=== PATIENT | female | born 1960 | race Caucasian/White ===

== ENCOUNTER 2016-09-30 07:22 | Inpatient (IN) | payer OTHER ==
[~2016-09-30] VITALS: Ht 157.5 cm; Wt 104.3 kg
[~2016-09-30 07:22] MED LIST: ZOFRAN ODT4 M1 PO
--- NOTE | 2016-09-30 07:24 | NUR ---
PT BIBA FROM HOME C/C GENERALIZED WEAKNESS AND INABILITY TO WALK. PER REPORT PT HAS HAD PROGRESSIVE WEAKNESS AND ARM PAIN IN THE LAST YEAR. YESTERDAY AFTERNOON PT ATTEMPTED TO GET HERSELF FROM THE COUCH TO THE BATHROOM VIA CRAWLING ON THE FLOOR BUT WAS UNABLE TO GET HERSELF OUT OF THE BATHROOM AFTERWARDS. FAMILY FOUND HER ON THE FLOOR IN THE BATHROOM Friday AT APPROX 3 PM. AND SON ASSISTED ON GETTING PATIENT BACK TO COUCH AREA BUT WAS UNABLE TO GET HER BACK UP ONTO THE COUCH SO MADE A BED FOR HER ON THE FLOOR WITH QUILTS. PT HAS HX INCLUDING FIBROMYALGIA, HERNIATED DISK, FUSION, AND NEUROSTIMULATOR FOR PAIN. WAS DUE TO HAVE THE NEUROSTIMULATOR REMOVED TODAY IN [place] SO DR PAEZ COULD PERFORM FURTHER TESTING PER PATIENT. STATES THAT HE DIDN'T WANT TO DO ANYTHING WITH HER UNTIL HE CALLED THE SURGICAL PLACE THIS MORNING. STATES HE CALLED THEM AT 06:00 AND THEY ADVISED HIM TO BRING HER TO THE ER. PT CHANGED INTO HOSPITAL GOWN, SKIN NOTED TO BE CLEAN AND INTACT. PT ABLE TO ASSIST WITH TURNING SELF IN BED.
--- NOTE | 2016-09-30 07:27 | ED GENERAL ADULT ---
History of Present Illness General Chief Complaint: General Adult Stated Complaint: BIBA WEAKNESS Source: patient Exam Limitations: poor historian Vital Signs & Intake/Output Vital Signs & Intake/Output Vital Signs Date Time Temp Pulse Resp B/P Pulse O2 O2 Flow FiO2 Ox Delivery Rate 10/01 1747 99.0 108 18 140/72 95 Room Air 10/01 1236 97.5 95 18 126/75 96 Room Air Room Air 10/01 1022 97.2 90 18 127/69 98 Room Air 10/01 0721 97.7 100 18 166/76 97 Room Air 10/01 0453 97.6 96 18 139/94 96 Room Air 10/01 0212 97.3 98 18 148/86 98 Room Air 09/30 2144 98.6 116 18 146/101 09/30 2144 98.6 116 18 146/101 09/30 2138 98.6 116 18 146/101 97 Room Air ED Intake and Output 10/01 0000 09/30 1200 Intake Total Output Total 150 Balance -150 Output, Urine 150 Patient 230 lb Weight Allergies Coded Allergies: Sulfa (Sulfonamide Antibiotics) (VOMITING 09/30/16) Reconcile Medications Alprazolam 1 MG TABLET 1 TAB PO QPM SLEEP (Reported) Dextroamphetamine/Amphetamine (Dextroamp-Amphetamin 10 MG Tab) 10 MG TABLET 1 TAB PO 1400 UNKNOWN (Reported) Duloxetine HCl 60 MG CAPSULE.DR 1 CAP PO DAILY UNKNOWN (Reported) Ergocalciferol (Vitamin D2) (Vitamin D2) 50,000 UNIT CAPSULE 1 CAP PO Q30D SUPPLEMENT (Reported) Gabapentin 600 MG TABLET 1 CAP PO 4 TIMES/DAY PAIN (Reported) Lamotrigine 200 MG TABLET 1 TAB PO DAILY UNKNOWN (Reported) Levothyroxine Sodium 88 MCG TABLET 1 TAB PO DAILY AC THYROID (Reported) Lisdexamfetamine Dimesylate (Vyvanse) 30 MG CAPSULE 1 CAP PO DAILY UNKNOWN ( Reported) Lisinopril 10 MG TABLET 1 TAB PO DAILY HEART (Reported) Lovastatin 10 MG TABLET 1 TAB PO DAILY CHOLESTEROL (Reported) Metoprolol Succinate 50 MG TAB.ER.24H 1 TAB PO DAILY HEART (Reported) Morphine Sulfate 15 MG TABLET 1 TAB PO BIDP PRN PAIN (Reported) Morphine Sulfate (Morphine Sulfate ER) 60 MG TABLET.ER 1 TAB PO TID PAIN ( Reported) Ondansetron (Zofran Odt) 4 MG TAB.RAPDIS 1 TAB PO Q6 PRN NAUSEA Oxycodone HCl 10 MG TABLET 1 TAB PO 4XDP PRN PAIM (Reported) Onset: Abrupt Duration: day(s): Timing: recent history HPI: 09/30/16 55-year-old female presents to the emergency department complaining of lower extremity weakness. According to the patient she has a history of chronic pain and fibromyalgia. She is also status post neurostimulator insertion. She was initially scheduled to have the neurostimulator removed today but was having profound weakness, so much so she was unable to walk and was actually crawling at home. The onset of the symptoms were abrupt, the duration was 48 hours, the severity is significant as her symptoms required her to come to the emergency department for care. She denies fever or significant pain at this time. (SUZANNE STODDARD DO) Triage Nurses Notes Reviewed? yes (AFIA VU,ASHWIN) Past History Medical History Any Pertinent Medical History? see below for history Neurological: SEIZURES FIBROMYALGIA Cardiovascular: hypertension Other Medical Hx: ADRENAL INSUFFIENCY Surgical History Surgical History: , CERVICAL SURGERY CARPAL TUNNEL, TONSILLECTOMY Psychosocial History Who do you live with Family What is your primary language Mozambican Family History Hx Contributory? No (SUZANNE STODDARD DO) Review of Systems Review of Systems Constitutional: Denies: fever. EENTM: Denies: visual changes. Respiratory: Denies: short of breath. Cardiovascular: Denies: chest pain. GI: Denies: abdominal pain. Genitourinary: Reports: no symptoms. Musculoskeletal: Reports: see HPI. Skin: Denies: rash. Neurological/Psychological: Reports: no symptoms. Hematologic/Endocrine: Denies: bruising, bleeding. (SUZANNE STODDARD DO) Physical Exam Physical Exam General Appearance: alert, awake, anxious, moderate distress Head: atraumatic, normal appearance Eyes: Bilateral: normal appearance, PERRL, EOMI. Ears, Nose, Throat: normal ENT inspection Neck: limited range of motion Respiratory: chest non-tender, no respiratory distress Cardiovascular: regular rate/rhythm Peripheral Pulses: 4+ radial (R), 4+ radial (L) Gastrointestinal: soft, non-tender Back: decreased range of motion Extremities: pedal edema Neurologic/Psych: no motor/sensory deficits, awake, alert, oriented x 3 Skin: intact, normal color, warm/dry (SUZANNE STODDARD DO) Core Measures ACS in differential dx? No CVA/TIA Diagnosis: No Severe Sepsis Present: No Septic Shock Present: No (ASHWIN HELLER MD) Progress Differential Diagnoses I considered the following diagnoses in my evaluation of the patient: [Disc herniation, epidural abscess, exacerbation of fibromyalgia, transverse myelitis, cauda equina syndrome, Guillain-Yang syndrome,] Plan of Care: Orders Procedure Date/time Status Heart Healthy Diet 10/01 B Active Admit to inpatient 10/01 1942 Active Therapeutic Exercise X 15 10/01 UNK Complete Current Medications Sig/Cammy Start time Last Medication Dose Stop Time Status Admin Morphine Sulfate 60 MG ONCE ONE 09/30 2029 CAN (Ms Contin 100MG Tab) 09/30 2030 7:30 PM Patient signed out to me by Dr. Stoddard. Pending case management placement. (ASHWIN HELLER MD) Initial ED EKG: none (SUZANNE STODDARD DO) Differential Diagnoses I considered the following diagnoses in my evaluation of the patient: Hand-Off Endorsed To: SANTIAGO ASHFORD MD Endorsed Time: 0700 Pending: other (CASE MANAGMENT PLACEMENT) (ASHWIN HELLER MD) Hand-Off Endorsed To: CORNEL RUSHING MD Endorsed Time: 1900 Pending: other (snf placement) Comments: Discussed case with Dr. Puri. Suggestion made to remove neural stimulator so MRI can be done for further assessment of seizure disorder. (SANTIAGO ASHFORD MD) Departure Departure Disposition: STILL A PATIENT Condition: Stable Referrals: VANDANA JACKSON MD (PCP/Family) Departure Forms: Customer Survey General Discharge Information Comments 09/30/16 The patient is pending case management assistance with her disposition. She was signed out to Dr. Heller at 7 PM. The patient was unable to walk by PT CT scan of the lumbar spine as shown below- PATIENT: LUIS CRAVEN PRESENT AGE: 55 PATIENT ACCOUNT NO: [id number] : 59 LOCATION: [facility] ORDERING PHYSICIAN: SUZANNE STODDARD DO SERVICE DATE: 09/30/16 EXAM TYPE: CAT - CT LUMB SPINE WO IV CONTRAST EXAMINATION: CT LUMBAR SPINE WITHOUT CONTRAST CLINICAL INFORMATION: Lower extremity weakness. Rule out disc herniation. COMPARISON: CT of the abdomen from 01/01/2012 TECHNIQUE: Helical non-contrast CT images were obtained through the lumbar spine and 1.25 and 2.5 mm axial reconstructions were reviewed along with sagittal and coronal MPRs. DLP: 1269 mGy-cm. FINDINGS: There are 5 nonrib-bearing lumbar type vertebral bodies. Vertebral body height and sagittal alignment are maintained. There is mild intervertebral disc height loss with endplate spurring at T11-T12 and T12-L1 as well as L5-S1. No evidence of spondylolyses. There is a mild levoconvex scoliosis centered at T12-L1 with approximately 3 mm of right lateral listhesis of T12 on L1. Asymmetric right lateral bridging osteophytes are present at T12-L1, L1-L2 and L2-L3. In the interval since the prior study there has been placement of a spinal stimulator device with a generator in the left flank, and entering the spinal canal at the T12-L1 level. The wire a centimeters in the posterior spinal canal to the left of midline, and the pilot plant technician image demonstrates the electrode array extending to the T6 level. There is a separate wire ascending in the subcutaneous tissues of the left parasagittal back. The aorta is normal in caliber. No retroperitoneal adenopathy. The visualized abdominal viscera appear grossly unremarkable. The imaged SI joints are minimally degenerated. SPINAL LEVELS: T11-T12: Normal disc morphology is visualized. There is asymmetric left-sided facet arthropathy with a facet osteophyte projecting into the left side of the canal effacing the left subarticular recess, and potentially impinging upon the traversing T12 nerve root. There is moderate left foraminal stenosis as well. T12-L1: Minor disc bulge is visualized. There is asymmetric right-sided disc osteophyte complex. The canal and left foramen are well maintained. There is moderate right foraminal stenosis. L1-L2: There is disc bulge and asymmetric right-sided disc osteophyte complex. The canal and left foramen appear well-maintained. There is mild right foraminal stenosis. L2-L3: Disc bulge and asymmetric right-sided facet arthropathy. There is mild canal stenosis. Mild bilateral foraminal stenosis. L3-L4: There is mild disc bulge. Asymmetric right greater than left facet arthropathy. There appears to be mild canal stenosis and mild bilateral foraminal stenosis. L4-L5: There is disc bulge and bilateral fairly pronounced facet hypertrophy. There is mild trefoil type canal stenosis. There is mild bilateral foraminal stenosis. L5-S1: There is mild disc osteophyte complex and facet hypertrophy. There is mild canal and mild bilateral foraminal stenosis. IMPRESSION: 1. There is a spinal stimulator device entering the canal at the T12-L1 level, and extending cranially in the posterior canal to the T6 level. 2. T11-T12: Asymmetric left-sided facet osteophyte projecting into and effacing the left subarticular recess, potentially impinging upon the traversing T12 nerve root. Moderate left foraminal stenosis. 3. T12-L1: Asymmetric right-sided disc osteophyte complex resulting in moderate right foraminal stenosis. 4. Elsewhere mild lumbar spondylosis. There is a mild levoconvex scoliosis centered at T12-L1. No compression deformities. DICTATED BY: BRYAN PALOMO MD DATE/TIME DICTATED:09/30/161616 DIRECTOR OF NEUROLOGY:PARVIN DATE/TIME TRANSCRIBED:09/30/161616 CONFIDENTIAL, DO NOT COPY WITHOUT APPROPRIATE AUTHORIZATION. <Electronically signed in Other Vendor System> SIGNED BY: BRYAN PALOMO MD 09/30/16 8317 (SUZANNE STODDARD DO) Departure Clinical Impression Primary Impression: Hospital admission due to social situation Secondary Impressions: Fibromyalgia, Weakness Admission Note Spoke With: JONELLE VU,KINAJohn Documentation of Exam: Documentation of any treatments & extenuating circumstances including Concerns Regarding Discharge (functional status, medication knowledge or non-compliance, living conditions, etc.) that warrant an admission rather than observation: [PT IS A SOCIAL ADMISSION] (KRISTAN VU,CORNEL Campoverde) Critical Care Note Critical Care Note Critical Care Time: non-applicable Comments: 09/30/16 3 pm The patient was attempted to be ambulated by both the nurses and physical therapy. She has significant lower extremity weakness and is unable to walk. CT scan of the lumbar spine was ordered. There is no focal lower extremity deficits. She is pending case management placement for short-term rehabilitation. She will ultimately need an her stimulator removed, an MRI scan (SUZANNE STODDARD DO)
--- NOTE | 2016-09-30 07:35 | NUR ---
MEDICAL STUDENT INTO EVALUATE
--- NOTE | 2016-09-30 08:31 | NUR ---
DR STODDARD INTO EVALUATE PATIENT
--- NOTE | 2016-09-30 08:32 | NUR ---
LABS DRAWN AND SENT, LAV,SST,BLUE TOP
[2016-09-30 08:50] LABS: ABSOLUTE BASOPHIL COUNT 0 /CUMM (0.0-0.2); ABSOLUTE EOSINOPHIL COUNT 0 /CUMM (0.0-0.7); ABSOLUTE GRANULOCYTE CT 5.5 /CUMM (1.4-6.5); ABSOLUTE LYMPH COUNT 1.7 /CUMM (1.2-3.4); ABSOLUTE MONOCYTE COUNT 0.8 /CUMM (0.10-0.60); BASOPHIL % 0 % (0.0-2.0); EOSINOPHIL % 0 % (0-5); GRANULOCYTE % 69.3 % (42.2-75.2); HEMATOCRIT 41.2 % (37-47); MEAN CORPUSCULAR HGB 27.2 PG (27.0-31.0); MEAN CORPUSCULAR HGB CONC 32.5 G/DL (33.0-37.0); MEAN CORPUSCULAR VOLUME 83.6 FL (81.0-99.0); MEAN PLATELET VOLUME 7.3 FL (7.4-10.4); PLATELET COUNT 341 /CUMM (130-400); RBC DISTRIBUTION WIDTH 14.5 % (11.5-14.5); RED BLOOD CELL CT 4.93 /CUMM (4.20-5.40)
--- NOTE | 2016-09-30 09:14 | NUR ---
PT ASSISTED ON/OFF BEDPAN FOR URINE SPECIMEN
--- NOTE | 2016-09-30 09:39 | NUR ---
IV ACCESS ESTABLISHED, #20 JORGE IVF N/S INFUSION INITIATED PER ORDERS AND PT MEDICATED WITH IV SOLUMEDROL PER ORDERS
--- NOTE | 2016-09-30 10:32 | NUR ---
PER PSYCHIATRIC ATTENDANT PT REFUSING CT SCAN AT THIS TIME STATING IT WAS UNNECESSARY. DR STODDARD AWARE OF SAME.
--- NOTE | 2016-09-30 13:01 | NUR ---
ATTEMPTED TO AMBULATE PATIENT PER DR STODDARD. PT ABLE TO STAND AT BEDSIDE AND TAKE 2 VERY SMALL STEPS WITH GREAT DIFFICULTY AND UNSTEADY. ASSISTED BACK TO STRETCHER. DR STODDARD MADE AWARE OF SAME.
[2016-09-30] MEDS ORDERED: DULOXETINE HCL60 MG PO (13:14)
[2016-09-30] MEDS ORDERED: LAMOTRIGINE200 M2 PO (13:15)
[2016-09-30] MEDS ORDERED: VYVANSE30 M1 PO (13:15)
[2016-09-30] MEDS ORDERED: MORPHINE SULFAT60 M4 PO (13:16)
[2016-09-30] MEDS ORDERED: MORPHINE SULFAT15 M4 PO (13:16)
[2016-09-30] MEDS ORDERED: OXYCODONE HCL10 M2 PO (13:17)
[2016-09-30] MEDS ORDERED: ALPRAZOLAM1 M2 PO (13:17)
[2016-09-30] MEDS ORDERED: LISINOPRIL10 M1 PO (13:18)
[2016-09-30] MEDS ORDERED: VITAMIN D250000 UNIT PO (13:18)
[2016-09-30] MEDS ORDERED: DEXTROAMP-AMPHE10 MG PO (13:18)
[2016-09-30] MEDS ORDERED: GABAPENTIN600 M1 PO (13:19)
[2016-09-30] MEDS ORDERED: METOPROLOL SUCC50 M2 PO (13:19)
[2016-09-30] MEDS ORDERED: LEVOTHYROXINE88 MCG PO (13:19)
[2016-09-30] MEDS ORDERED: LOVASTATIN10 M1 PO (13:19)
--- NOTE | 2016-09-30 13:41 | NUR ---
09/30 case mgmt- paged physical therapy awaiting return call back.
--- NOTE | 2016-09-30 13:45 | NUR ---
09/30 case mgmt- spoke with oumou from pt aware of pt.
--- NOTE | 2016-09-30 14:04 | NUR ---
PT AT BEDSIDE
--- NOTE | 2016-09-30 14:36 | NUR ---
Case Mgmnt TSF: Physical therapy assessed patient and they are recommending STR. We will do paperwork for patient and will go speak with her about choices for rehabs. CM continuing to follow.
--- NOTE | 2016-09-30 15:15 | NUR ---
09/30 CASE MGMT- MET WITH PT INTRODUCED SELF AND EXPLAINED ROLE OF CARE COORDNIATOR. SPOKE WITH PT REGARDING D/C PLAN AND STR. PT STATES WOULD LIKE TO HAVE PT HERE TO MAKE CHOICES FOR A FACILITY. ATTEMPTED TO CONTACT PT FROM PT ROOM PHONE UNSUCCESFUL BUT STATES CAN CONTINUE TO ATTEMPT TO CONTACT PT REGARDING D/C PLAN. ATTEMPTED BOT PHONE NUMBERS LISTED FOR PT AND MESSAGES LEFT ON BOTH FOR PT TO CONTACT CASE MGMT. AWAITING RETURN CALL BACK. CASE MGMT WILL CONTINUE TO FOLLOW.
--- NOTE | 2016-09-30 15:31 | NUR ---
09/30 CASE MGMT- SPOKE WITH PT MADE AWARE PT WOULD LIKE HER HERE TO DECIDE WHICH FACILITIES TO CHOOSE. PT STATES HE WILL BE HERE SHORTLY. CASE MGMT WILL CONTINUE TO FOLLOW.
--- NOTE | 2016-09-30 15:42 | NUR ---
ASSUMED CARE OF PT PER FREDO HECTOR. PT RESTING IN RM WITH RR, AWAITING TO ARRIVE TO MAKE ANY DECISIONS ABOUT PLACEMENT WITH CASE MANAGEMENT PER CASE MANAGEMENT-IMELDA.
--- NOTE | 2016-09-30 16:36 | CT SCAN REPORT ---
EXAMINATION: CT LUMBAR SPINE WITHOUT CONTRAST CLINICAL INFORMATION: Lower extremity weakness. Rule out disc herniation. COMPARISON: CT of the abdomen from 01/01/2012 TECHNIQUE: Helical non-contrast CT images were obtained through the lumbar spine and 1.25 and 2.5 mm axial reconstructions were reviewed along with sagittal and coronal MPRs. DLP: 1269 mGy-cm. FINDINGS: There are 5 nonrib-bearing lumbar type vertebral bodies. Vertebral body height and sagittal alignment are maintained. There is mild intervertebral disc height loss with endplate spurring at T11-T12 and T12-L1 as well as L5-S1. No evidence of spondylolyses. There is a mild levoconvex scoliosis centered at T12-L1 with approximately 3 mm of right lateral listhesis of T12 on L1. Asymmetric right lateral bridging osteophytes are present at T12-L1, L1-L2 and L2-L3. In the interval since the prior study there has been placement of a spinal stimulator device with a generator in the left flank, and entering the spinal canal at the T12-L1 level. The wire a centimeters in the posterior spinal canal to the left of midline, and the sensitizer image demonstrates the electrode array extending to the T6 level. There is a separate wire ascending in the subcutaneous tissues of the left parasagittal back. The aorta is normal in caliber. No retroperitoneal adenopathy. The visualized abdominal viscera appear grossly unremarkable. The imaged SI joints are minimally degenerated. SPINAL LEVELS: T11-T12: Normal disc morphology is visualized. There is asymmetric left-sided facet arthropathy with a facet osteophyte projecting into the left side of the canal effacing the left subarticular recess, and potentially impinging upon the traversing T12 nerve root. There is moderate left foraminal stenosis as well. T12-L1: Minor disc bulge is visualized. There is asymmetric right-sided disc osteophyte complex. The canal and left foramen are well maintained. There is moderate right foraminal stenosis. L1-L2: There is disc bulge and asymmetric right-sided disc osteophyte complex. The canal and left foramen appear well-maintained. There is mild right foraminal stenosis. L2-L3: Disc bulge and asymmetric right-sided facet arthropathy. There is mild canal stenosis. Mild bilateral foraminal stenosis. L3-L4: There is mild disc bulge. Asymmetric right greater than left facet arthropathy. There appears to be mild canal stenosis and mild bilateral foraminal stenosis. L4-L5: There is disc bulge and bilateral fairly pronounced facet hypertrophy. There is mild trefoil type canal stenosis. There is mild bilateral foraminal stenosis. L5-S1: There is mild disc osteophyte complex and facet hypertrophy. There is mild canal and mild bilateral foraminal stenosis. IMPRESSION: 1. There is a spinal stimulator device entering the canal at the T12-L1 level, and extending cranially in the posterior canal to the T6 level. 2. T11-T12: Asymmetric left-sided facet osteophyte projecting into and effacing the left subarticular recess, potentially impinging upon the traversing T12 nerve root. Moderate left foraminal stenosis. 3. T12-L1: Asymmetric right-sided disc osteophyte complex resulting in moderate right foraminal stenosis. 4. Elsewhere mild lumbar spondylosis. There is a mild levoconvex scoliosis centered at T12-L1. No compression deformities.
--- NOTE | 2016-09-30 18:38 | NUR ---
DINNER TRAY ORDERED AND GIVEN TO PT. PT REPOSITIONED IN BED.
--- NOTE | 2016-09-30 18:41 | NUR ---
THIS RN CALLED TRANSPORT FOR A HOSPITAL BED
--- NOTE | 2016-09-30 19:16 | NUR ---
DR SAL AT BEDSIDE
--- NOTE | 2016-09-30 20:08 | NUR ---
PT MOVED TO HOSPITAL BED AND USED BED PAIN WITHOUT COMPLICATIONS BY RN FLORENCIA AND RN MONICA
--- NOTE | 2016-09-30 21:45 | NUR ---
PT MEDICATED WITH 10MG ROXICODONE PO, 600MG GABAPENTIN PO, 60MG OF MS CONTIN PO, 60MG CYMBALTA PO, 200MG LAMITICAL PO, 50MG LOPRESSOR PO, AND 10MG LISINOPRIL PER EMAR.
--- NOTE | 2016-09-30 22:20 | NUR ---
PT RESTING IN RM WITH RR, SLEEPING/ TOSSING AND TURINING
--- NOTE | 2016-09-30 23:15 | NUR ---
PT REPOSITIONED IN BED WITH EXTRA PILLOWS AND BLANKETS. PT REPORTS SHE HAD A "BAD DREAM." REDIRECTED TO ENVIRONMENT AND DOOR LEFT OPEN AT THIS TIME FOR MONITORING.
--- NOTE | 2016-10-01 02:10 | NUR ---
PT ASSISTED ON BED PAIN, VOIDED 220CCS CLEAR YELLOW URINE. PT TURNED AND REPOSITIONED IN BED. VSS. LIGHTS DIMMED FOR COMFORT.
--- NOTE | 2016-10-01 03:02 | NUR ---
PT CURRENTLY SLEEPING WITH SNORING BUT REGULAR RR. WILL CTM.
--- NOTE | 2016-10-01 05:00 | NUR ---
PT COMPLAINING OF 5/10 GENERALIZED PAIN AND BACK PAIN. PT HAS PRN ORDER FOR MS CONTIN, CALLED PHARMACY FOR MEDICATION.
--- NOTE | 2016-10-01 05:27 | NUR ---
ADJUSTED PT MORNING MEDICATIONS PER PT USUAL. PT MEDICATED WITH NEURONTIN AND MS CONTIN PER ORDER (SEE MAR). VSS. PT AWAKE AND ALERT, SITTING UP IN BED. TELEVISION TURNED ON FOR PT. WILL CTM.
--- NOTE | 2016-10-01 07:29 | NUR ---
ASSUMED CARE, PT SLEEPING.
--- NOTE | 2016-10-01 08:30 | NUR ---
REPOSITIONED IN BED. ABLE TO ROLL SIDE TO SIDE; BUT UNABLE TO BOOST SELF UP. EATING BREAKFAST.
--- NOTE | 2016-10-01 10:15 | NUR ---
AWIATING CASE MANAGENT FOR DISPOSTION. (SHORT TERM REHAB).
--- NOTE | 2016-10-01 11:25 | NUR ---
PT SITTING UP IN BED, REQUESTING PAIN MEDICATION FOR BREAK THROUGH PAIN. REPORTS PAIN 10/10 AND DISORIENTATION TO TIME DUE TO PAIN AT THIS TIME.
--- NOTE | 2016-10-01 11:30 | NUR ---
CASE MANAGEMENT TO BEDSIDE TO DISCUSS PLACEMENT OPTIONS.
--- NOTE | 2016-10-01 11:32 | NUR ---
10/01 CASE MGMT- MET WITH PT AND MADE AWARE DUE TO INSURANCE THERE ARE NOT MANY FACLITIES THAT HAVE A CONTRACT WITH PER HEATHER CASE MGMT AND TO TRY CLOSER TO BASE WITH ER [facility] OR [facility]. PT STATES MANY OF HER DOCTORS ARE IN [place] AND WOULD LIKE TO BE DOWN THAT WAY IF POSSIBLE BUT TO RUN IT BY HER FIRST AND SEE WHAT HE THINKS. SPOKE WITH PT AND HE AGREES TO TRY DOWN [place] AREA. CASE MGMT WILL CONITNUE TO FOLLOW.
--- NOTE | 2016-10-01 11:54 | NUR ---
PT ASSISTED TO COMMODE WITH WALKER. PT WAS ABLE TO STAND AND PIVOT WITH 2 ASSIST. PT MEDICATED PER EMAR, PT STATES "THATS HOW I MANAGE MY MEDICATIONS AT HOME AND I HAVE FOUND IT WORKS WELL." NURSING WILL CONTINUE TO MONITOR.
--- NOTE | 2016-10-01 12:32 | NUR ---
10/01 CASE MGMT- CALLS PLACED TO [facility] IN [place] MESSAGE LEFT AWAITING CALL BACK, CALL PLACED TO [facility] [place] SPOKE WITH AL STATES NOT CONTARCTED WITH . CALL TO [facility] SPOKE WITH HESHAM STATES NO CONTRACT, CALL TO [facility] SPOKE WITH NIECY WHOM STATES NO CONTRACT WITH , CALL TO [facility] [place] SPOKE WITH DARIUS WHOM STATES THEY TAKE SECONDARY INS ONLY, SPOKE WITH CAYETANO AT [facility] WHOM STATES THAT THEY DO TAKE PRIMARY AND REFERRAL FAXED. ALSO SPOKE WITH NINI AT [facility] WHOM STATES THEY DONT TAKE PRIMARY. CASE MGMT WILL CONTINUE TO FOLLOW.
--- NOTE | 2016-10-01 12:37 | NUR ---
10/01 CASE MGMT- CALL FROM SHON AT [facility] STATES THEY DO TAKE PRIMARY. REFERRAL FAXED. CASE MGMT WILL CONTINUE TO FOLLOW.
--- NOTE | 2016-10-01 13:07 | NUR ---
LUNCH TRAY DELIVERED.
--- NOTE | 2016-10-01 13:40 | NUR ---
PT TO BEDSIDE FOR EVAL. PER PT PT DID BED EXERCISES.
--- NOTE | 2016-10-01 14:01 | NUR ---
10/01 CASE MGMT- CALL TO SHON AT [facility] STILL AWAITING FOR ADMISSIONS TO LOOK OVER REFERRAL. CALL PLACED TO [facility] [place] MESSAGE LEFT. AWAITING RETURN CALL BACK. CASE MGMT WILL CONTINUE TO FOLLOW.
--- NOTE | 2016-10-01 14:32 | NUR ---
PT MEDICATED PER EMAR. PT UPSET ABOUT CURRENT POC AND THAT DR. PAEZ DID NOT KNOW SHE WAS SEEN HERE. CASE MANAGEMENT TO BEDSIDE TO DISCUSS FAMILY CONCERNS AT THIS TIME.
--- NOTE | 2016-10-01 14:45 | NUR ---
10/01 CASE MGMT- PT AT BEDSIDE AND STATES PT MAY NOT NEED SHORT TERM REHAB IF NEUROSTIMULATOR TAKEN OUT AND WOULD LIKE TO HAVE DR PAEZ SEE PT IN ER PRIOR TO MAKING ANY D/C PLAN DECISIONS. DR ASHFORD MADE AWARE AND PAGED TO DR PAEZ.
--- NOTE | 2016-10-01 14:50 | NUR ---
10/01 CASE MGMT- SPOKE WITH EVELINE FOR [facility] STATES SYSTEM IS DOWN AND WONT BE ABLE TO LOOK UP PT INSURANCE BENEFITS UNTIL COMPUTER SYSTEM IS BACK UP AND IS UNSURE BUT POSSIBLE IN 2 HOURS AND WILL HAVE TO TRY BACK. EVELINE ALSO LOOKED UP DIFFERENT IN NETWORK FACILITIES AND STATES IT LOOKS LIKE [place] IS THE CLOSEST STR IN NETWORK FOR PATIENT BUT WONT BE ABLE TO VERIFY UNTIL COMPUTER SYSTEMS ARE BACK UP.
--- NOTE | 2016-10-01 16:12 | NUR ---
10/01 CASE MGMT- CALL TO [facility] AGAIN SPOKE WITH OMER [employer]PUT[employer] STILL DOWN POSSIBLE FOR SEVERAL MORE HOURS AND POSSIBLY NOT UNTIL TOMORROW. CASE MGMT WILL CONTINUE TO FOLLOW.
--- NOTE | 2016-10-01 17:15 | NUR ---
10/01 CASE MGMT- MET WITH PT TO DISCUSS PLAN OF CARE WITH PT AND PT WOULD LIKE ME TO DISCUSS WITH PT PLAN OF CARE. SPOKE WITH PT AND MADE AWARE OF COMPUTER DOWN WITH [facility] AND OF THE DIFFICULTY IN A BED SEARCH IF THEY AGREE WITH SHORT TERM REHAB. PT WOULD LIKE FOR PT TO REMAIN HERE UNTIL WE ARE ABLE TO SPEAK WITH INSURANCE COMPANY WITH COMPUTER SYSTEM WORKING CASE MGMT WILL CONTINUE TO FOLLOW. WILL KEEP ATTEMPTING TO CONTACT [facility] [place] WHOM BOTH FRANCISCO AND EVELINE STATE WILL BE OPEN UNTIL 7 PM .
--- NOTE | 2016-10-01 18:30 | NUR ---
10/01 CASE MGMT- SPOKE WITH URSZULA FROM [facility] STATES SOME OF THE SYSTEM IS UP AND CAN CHECK CERTAIN THINGS STATES UNDER PT POLICY PT WOULD NEED A QUALIFYING HOSPTIAL STAY OF THREE CONSECUTIVE DAYS OR MORE NOT INCLUDING THE HOSPITAL D/C DAY. PT HAS NO MEDICAL REASON FOR QUALIFYING OF HOSPTIAL STAY. SPOKE WITH PATIENT AND MADE AWARE AND SHE WOULD LIKE FOR ME TO DISCUSS PLAN OF CARE WITH HER .
--- NOTE | 2016-10-01 19:00 | NUR ---
10/01 CASE MGMT- SPOKE WITH PT REGARDING PLAN OF CARE AND MADE AWARE OF PT INSURANCE POLICY STATING WOULD NEED THREE QUALIFYING DAYS AND NO MEDICAL REASON BUT WILL NEED TO MAKE SURE PT HAS A SAFE PLAN IN PLACE FOR PLAN OF CARE WITH EAITHER [address] PT STATES HE IS HOME MOST OF THE TIME, IF CLEARED BY PHYSICAL THERAPY IN THE MORNING WITH RE-EVALUATION OR WOULD HAVE TO ISSUE A DENIAL LETTER AND MADE AWARE THAT INSURANCE MAY DENY STAY. PT STATES THAT DUE TO THE SNOW AND HIS PAIN HE WILL NOT BE COMING TONIGHT TO PICK PT UP. PT MADE AWARE THAT DENIAL FOR STAY IS BEING ISSUED.
--- NOTE | 2016-10-01 19:49 | NUR ---
10/01 CASE MGMT- PT AWARE OF DENIAL LETTER AND THAT THERE IS NO MEDICAL REASON FOR ADMI- PT SIGNED DENIAL LETTER 7:41 PM ON 10/01/16- DR RUSHING MADE AWARE.
--- NOTE | 2016-10-01 21:54 | NUR ---
Emergency Dept UC Admit Note: To be admitted to [facility] by DR SAL with GENERALIZED WEAKNESS as the diagnosis, to [facility] MED/ ROOM 223-02 location. Nursing Freelance Operator and admitting notified 10/01/16 at [id number]
--- NOTE | 2016-10-01 22:10 | History & Physical ---
MALKA VU,[facility] 10/01/16 4899: General Information and HPI MD Statement: I have seen and personally examined LUIS CRAVEN and documented this H&P. The patient is a 55 year old F who presented with a patient stated chief complaint of [progressive weakness]. Source of Information: patient Exam Limitations: no limitations History of Present Illness: Patient is a 55-year-old lady was brought in to the ED due to progressive weakness as well as numbness in the hands and feet for about 6 months. Her weakness is worsened to the extent that yesterday she had to crawl on the floor to go to the bathroom. Patient was prompted by her to come to the ED for help. Patient has been following with Dr. Puri closely for her weakness as well as a history of complex partial seizures, takes lamotrigine 200 mg daily (although was suggested by Dr. Puri to take 300 mg). She also has fibromyalgia, depression and chronic back pain. She has a nerve stimulator in the spinal cord for her pain and was supposed to get it removed this week and get an MRI of the spine to evaluate for disc herniation. However she was extremely debilitated because of the weakness yesterday; her wanted her to come to the ED. Patient also reported that she might be having seizures per her , as she was blanking several times during the day. According to patient 'she could have stayed at home', but patient's , who she says is very caring, has been diagnosed with metastatic disease and has been unable to keep up with taking care of her. Her past medical history is also significant for a possible adrenal insufficiency for which krissy disease was ruled out but she has been kept on prednisone 5 mg BID by her PCP since about 2 years ago, she says she is still taking it. She also has been given vitamin B12 shots as well as weekly vitamin D2. Allergies/Medications Allergies: Coded Allergies: Sulfa (Sulfonamide Antibiotics) (VOMITING 09/30/16) Home Med list Alprazolam 1 MG TABLET 0.5 TAB PO QPM SLEEP (Reported) Dextroamphetamine/Amphetamine (Dextroamp-Amphetamin 10 MG Tab) 10 MG TABLET 1 TAB PO 1400 ADD (Reported) Duloxetine HCl 60 MG CAPSULE.DR 1 CAP PO DAILY PAIN/DEPRESSION (Reported) Ergocalciferol (Vitamin D2) (Vitamin D2) 50,000 UNIT CAPSULE 1 CAP PO QW SUPPLEMENT (Reported) Gabapentin 600 MG TABLET 1 CAP PO 4 TIMES/DAY PAIN (Reported) Lamotrigine 200 MG TABLET 1 TAB PO DAILY SEIZURE (Reported) Levothyroxine Sodium 88 MCG TABLET 1 TAB PO DAILY AC THYROID (Reported) Lisdexamfetamine Dimesylate (Vyvanse) 30 MG CAPSULE 1 CAP PO DAILY UNKNOWN ( Reported) Lisinopril 10 MG TABLET 1 TAB PO DAILY HEART (Reported) Lovastatin 10 MG TABLET 1 TAB PO AT BEDTIME HLD (Reported) Metoprolol Succinate 50 MG TAB.ER.24H 1 TAB PO DAILY HEART (Reported) Morphine Sulfate (Morphine Sulfate ER) 60 MG TABLET.ER 1 TAB PO TID PAIN ( Reported) Morphine Sulfate 15 MG TABLET 1 TAB PO Q4-6 PRN PRN PAIN (Reported) Oxycodone HCl 10 MG TABLET 1 TAB PO 4XDP PRN PAIM (Reported) Prednisone 5 MG TABLET 1 TAB PO BID ADRENAL INSUFFICIENCY (Reported) Past History Travel History Traveled to [place] past 21 day No Medical History Neurological: SEIZURES PSEUDO TUMOR CEREBRI EENT: NONE Cardiovascular: hypertension Respiratory: NONE Gastrointestinal: NONE Hepatic: NONE Renal: NONE Musculoskeletal: chronic back pain, disk herniation, fibromyalgia, ANKLE FX Psychiatric: MOOD SWINGS Endocrine: hypothyroidism Blood Disorders: NONE Cancer(s): NONE 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 Needs Assist: toileting, bathing. Review of Systems Review of Systems Constitutional: Reports: weakness. Denies: chills, fever, malaise, unexplained weight loss. EENTM: Reports: no symptoms. Cardiovascular: Denies: chest pain, palpitations. Respiratory: Denies: cough, short of breath, sputum production. GI: Denies: abdominal pain, nausea, changes in stool, vomiting. Genitourinary: Reports: no symptoms. Musculoskeletal: Reports: back pain. Denies: joint pain, muscle stiffness. Skin: Reports: erythema (on the face, with seizure). Neurological/Psychological: Reports: depressed (tearful), numbness, weakness. Denies: headache. Hematologic/Endocrine: Denies: bruising, bleeding, polyuria, polydipsia. Exam & Diagnostic Data Last 24 Hrs of Vital Signs/I&O Vital Signs Date Time Temp Pulse Resp B/P Pulse O2 O2 Flow FiO2 Ox Delivery Rate 10/01 2305 98.7 90 20 144/86 95 10/01 2234 94 127/70 10/01 2017 98.2 99 18 133/71 98 Room Air 10/01 1747 99.0 108 18 140/72 95 Room Air 10/01 1236 97.5 95 18 126/75 96 Room Air Room Air 10/01 1022 97.2 90 18 127/69 98 Room Air 10/01 0721 97.7 100 18 166/76 97 Room Air 10/01 0453 97.6 96 18 139/94 96 Room Air 10/01 0212 97.3 98 18 148/86 98 Room Air Intake & Output 10/02 0800 10/02 0000 10/01 1600 Intake Total Output Total Balance Patient 104.326 kg Weight Physical Exam General Appearance Alert, Oriented X3, Cooperative, No Acute Distress, tearful, obese Skin butterfly rash on the cheeks HEENT Atraumatic, PERRLA, EOMI, Mucous Membr. moist/pink Neck Supple, No JVD Lymphatic no cervical LAP Cardiovascular Regular Rate, Normal S1, Normal S2, No Murmurs Lungs Clear to Auscultation, Normal Air Movement Abdomen Normal Bowel Sounds, Soft, No Tenderness Neurological Normal Speech, Normal Tone, Sensation Intact, Cranial Nerves 3-12 NL, forces 5/5 on the left upper and lower ext, 4+/5 on the right uppper and lower extremities Extremities No Clubbing, No Cyanosis, No Edema, Normal Pulses, No Tenderness/ Swelling Vascular Normal Pulses, Pulses Symmetrical Assessment/Plan Assessment: Patient is a 55-year-old lady with past medical history of complex partial seizures, fibromyalgia, questionable adrenal insufficiency, hypertension, depression, chronic back pain on several pain medications. she was brought in to the ED per her 's suggestion due to her persistent and progressive weakness in extremities, causing her not to be able to ambulate on her own. Her is sick and it has been hard for him to take care of her. She is supposed to get an MRI of the spine done this week for possible disc herniation but needs to remove the neurostimulator first. Patient is admitted due to her social situation. Problem list and plan: Chronic weakness and numbness in the distal upper and lower extremities In the setting of absent motor and sensory deficits. Patient is awaiting the neurostimulator removal to get an MRI and evaluate for possible disc herniation. * PT eval and treatment * consider neurology consult with Dr. Puri * checked TFT: TSH and FT4 WNL Chronic low back pain Patient is on multiple pain medications including morphine sulfate and oxycodone. she also has a spinal stimulator device entering the canal at the T12-L1 level, and extending cranially in the posterior canal to the T6 level. * Continue morphine sulfate and oxycodone at home dose * Continue gabapentin 600 mg every 6 History of complex partial partial seizures Following up with Dr. Puri and takes lamotrigine 200 mg daily, although Dr. Puri has suggested her to take 300 mg daily. Unclear whether patient has been having seizures. * Continue with 200 mg daily of lamotrigine for now * Consider contacting Dr. Puri for his opinion regarding the dose History of adrenal insufficiency Follows up with an department secretary at [facility] and has been taking 5 mg BID of prednisone for 2 years. * We continued prednisone 5 BID for now * In the morning: please try to get records from [facility] regarding the etiology of her adrenal insufficiency and also consider endo consult to see if the dose of prednisone should be modified. Her symptoms (weakness and depressed mood could be due to chronic steroid use). * check cortisol level in AM Hypertension * Lisinopril 10 mg daily * Metoprolol succinate 50 mg daily Hyperthyroidism * Continue levothyroxine 0.088 mg daily * TSH and T4 WNL HLD * continue statin Depression, Anxiety * Duloxetine 60 mg daily * Xanax DVT prophylaxis * Subcutaneous Lovenox Diet * Regular diet CODE STATUS * Full code As Ranked By This Provider Problem List: 1. Fibromyalgia 2. Weakness 3. Chronic pain 4. Hospital admission due to social situation Core Measures/Miscellaneous Acute Coronary Syndrome ACS Diagnosis: No Cerebrovascular Accident CVA/TIA Diagnosis: No Congestive Heart Failure CHF Diagnosis: No Venous Thromboembolism VTE Risk Factors: Age > 40, Obesity VTE Prophylaxis Ordered Inpt: Pharm- Lovenox No Mech VTE prophylaxis d/t: No contraindications No VTE Pharm Prophylaxis d/t: No contraindications VTE Diagnosis: No VTE Type: NONE VTE Confirmed by (Test): NONE Severe Sepsis Severe Sepsis Present: No Septic Shock Septic Shock Present: No Miscellaneous Documentation Attending Case Discussed With: MD CHRIS SAL Primary Care Physician: VANDANA JACKSON MD Patient sees these Specialists Dr. 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, at [facility] Level of Patient Care: General Medicine ANIL COLINDRES MD 10/02/16 0327: Resident Review Statement Resident Statement: examined this patient, discussed with international marketing coordinator, agreed with international marketing coordinator, reviewed EMR data (avail), reviewed images, amended to note Other Findings: This is 55 year old female with past medical history of fibromyalgia and chronic pain status post neurostimulator insertion few years back, history of complex partial seizure, hypothyroidism, ADD, hypertension, adrenal insufficiency presented to ED with chief complaint of progressively worsening lower extremity weakness associated with gloves and stocks pattern numbness in bilateral upper and lower extremity for past 6 months. Patient denied any viral illness, upper respiratory infection or GI infection in recent past. She claims that her weakness started probably 6 months ago and over. Of times it progress at the point that now she couldn't walk on her feet and has to crawl from her bed to the bathroom unable to use comode. Patient has been evaluated by Dr. Puri and recommended to get her neurostimulator out as she is not been using for past 2 years to get MRI evaluation of her spine. Patient has severe cervical degenerative disease status post anterior cervical discectomy at C5-C6 and C6-C7 level and has been managed by pain management clinic (Dr. Araiza) for past few years. Patient's was diagnosed with multiple myeloma and was involved in patient's care but now his disease has progressed at the point that he couldn 't help her out. Patient also claims that her has noticed her having an episode where she was just staring for a few minutes and is concerned that she might had an episode of seizure in ER. But there is no weakness or documentation in ER chart. On admission her vitals were T 99, HR 108, RR 18, BP 140/72, O2 sat 95% on room air. On physical exam patient is alert oriented 3, HEENT PERRLA EOMI, neck supple, heart S1-S2 normal without murmur, lungs clear on auscultation, abdomen soft nontender nor nondistended with preserved fall sounds, able to move all 4 extremities, noted mild decreased strength in right upper extremity, preserved sensation in all 4 extremities, cranial nerve II-12 intact, REFLEXES are brisk preserved 2+, no peripheral edema, no focal gross neuro deficit. Labs revealed WBC 8, H&H 13.4/40 1., normal electrolytes, BUN 6, creatinine 0.6, DDH LFT with AST of 67, ALT of 116, alkaline phosphatase 102, CK 157, blood glucose 103. U tox was positive for opiates and benzos. UA was unimpressive of any urinary infection CT lumbar spine without contrast noted spinal stimulator device entering at level TXII-L1, noted asymmetric left-sided facet osteophyte with moderate left foraminal stenosis at level of T12. No compression deformities Assessment: This is 55 year old obese female with past medical history of fibromyalgia and chronic pain, ADD, hypertension, hypothyroidism and adrenal insufficiency now comes in with 6 months history of progressive lower extremity weakness associated with peripheral numbness of distal upper and lower extremity with mildly deranged LFTs. 1. Generalized weakness associated with peripheral numbness of distal upper and lower extremity - Patient need removal of neurostimulator for further MRI evaluation of the spine is possible etiology - Physical therapy - continue Neurontin- - Consider neurologic consult if any significant neurologic change or patient develops seizure 2. Chronic back pain - Continue current pain management with morphine and oxycodone for breakthrough pain and long-acting morphine 3 times a day for basal pain coverage 3. Complex partial seizure Continue home dose Lamictal 4. Hypertension Continue home dose lisinopril and metoprolol 5. ADD/ADHD - Change Adderall to methylphenidate 6. Anxiety depression - Continue Xanax, Cymbalta 7. History of adrenal insufficiency - Check a.m. cortisol - Confirm with patient's PCP about patient's maintenance prednisone dose - Continue prednisone 5 mg twice a day 8. Hyperlipidemia Continue statin 9. Hypothyroidism Continue Synthroid 10. DVT prophylaxis Subcutaneous Lovenox 11. Full code JONELLE VU, [facility] 10/02/16 0546: Attending MD Review Statement Attending Statement Attending MD Statement: examined this patient, discuss w/resident/PA/MATERIALS ENGINEER, agreed w/resident/PA/MATERIALS ENGINEER Attending Assessment/Plan: 55 yo F with h/o partial complex seizure, HTN, hypothyroidism, depression, pseudotumor cerebri, ?adrenal insufficiency on prednisone, fibromyalgia, cervical radiculopathy s/p fusion and placement of neurostimulator (2012, but not in use) on chronic opiates, follows Dr. Puri (Neuro) and Dr. Myers (Pain management @ [facility]), is here with 6-month h/o progressively worsening LE weakness with inability to ambulate, and upper extremity numbness. She is supposed to get an MRI to evaluate cause for her symptoms as per Dr. Puri, however the neurostimulator needs to be removed so that MRI can be performed. Case management has been trying to place her at a facility, however have been unsuccessful for over 24 hours that the patient was in the ER, hence patient being admitted as social admit. VSS. Labs: AST 67, ALT 116, CK 157, Utox positive for opiates and benzos ( patient takes meds). CT lumbar spine shows moderate right foraminal stenosis T11 1. Weakness. Needs further evaluation with MRI after neurostimulator has been removed. Will continue home meds and consult PT. Case management consult. No need for Neuro consult at this point. 2. Partial complex seizure. Patient reports, her last seizure was 24 hours back while in ER, however no documentation of same. Monitor for now. If needed will consult Neuro for further management. 3. Chronic pain. Continue opiates. 4. Mild transaminitis. Gentle hydration and trend LFTs. DVT ppx Lovenox. Full code.
--- NOTE | 2016-10-01 22:33 | NUR ---
REPORT GIVEN TO FREDO ELLER. DISTRIBUTION CALLED FOR TRANSPORT.
--- NOTE | 2016-10-01 22:43 | NUR ---
PT WAS ABLE TO WALK INDEPENDENTLY FROM BED TO STRETCHER FOR TRANSPORT. MEDICATED WITH MS CONTIN 60MG PER EMAR.
--- NOTE | 2016-10-01 23:00 | NUR ---
ADMISSION NOTE- PT ARRIVED AT THIS TIME TO FLOOR, A/O X 3, ABLE TO AMBULATE WITH SUPERVISION FROM STRETCHER TO BED, STEADY GAIT, SLOW. NO DIZZINESS. DENIES CP, DENIES SOB, DENIES NAUSEA OR VOMITING. STATES NUMBNESS TO FINGERS AND TOES, +CMS, SKIN INTACT, NO EDEMA. BED ALARM PLACED. ORIENTED TO ROOM AND USE OF CALL WAN. STATES HEADACHE IS PRESENT AT THIS TIME, REQUESTING ROOM TO BE DARK. LIGHTS TURNED OFF FOR NOW. WILL REPORT OFF TO ONCOMING NURSE
[2016-10-01 23:05] VITALS: BP 144/86
[2016-10-02] MEDS ORDERED: PREDNISONE5 M1 PO (02:10)
--- NOTE | 2016-10-02 05:36 | Admission Certification ---
Admission Certification Certification Statement - As attending physician, I certify that at the time of - admission, based on clinical presentation, severity of - symptoms, need for further diagnostic testing and - therapeutic interventions, and risk of adverse outcomes - without in-hospital treatment, in my clinical assessment, - this patient requires an acute hospital stay for a minimum - of two nights or longer. I have also considered psychsocial - factors such as support system, advanced age, financial - issues, cognitive issues, and failed out-patient treatments, - past re-admission history, safety of patient, and lack of - compliance as applicable. Specific rationale supporting this admission is: Weakness, social admission.
[2016-10-02 06:23] VITALS: BP 134/80
--- NOTE | 2016-10-02 07:40 | PN- Housestaff ---
SAMUEL VU,WADE 10/02/16 0740: Subjective Follow-up For: Weakness Subjective: Patient seen and examined. She is seen lying flat in bed resting comfortably. She appears to be in no acute distress. She reports feeling incredibly tired, but not as fatigued as she did at home. She also admits to persistent hand numbness/tingling for which she is currently being evaluated as an outpatient by her neurologist Dr. Puri. Additionally she denies any headache, fever, chills, chest pain, shortness of breath, nausea, vomiting, diarrhea. No overnight events reported. Review of Systems Constitutional: Reports: see HPI. Objective Last 24 Hrs of Vital Signs/I&O Vital Signs Date Time Temp Pulse Resp B/P Pulse O2 O2 Flow FiO2 Ox Delivery Rate 10/02 1402 97.7 95 20 136/86 97 10/02 0916 134/80 10/02 0623 98.4 96 20 134/80 99 Room Air 10/01 2305 98.7 90 20 144/86 95 10/01 2234 94 127/70 10/01 2017 98.2 99 18 133/71 98 Room Air Intake & Output 10/02 1600 10/02 0800 10/02 0000 Intake Total 480 300 Output Total 375 Balance 105 300 Intake, IV 0 0 Intake, Oral 480 300 Number 0 0 Bowel Movements Output, Urine 375 Patient 104.326 kg Weight Physical Exam General Appearance: Alert, Oriented X3, Cooperative, No Acute Distress Other Physical Findings: General - well developed, well nourished, obese middled aged woman in no acute distress HEENT - NCAT, PERRL, EOMI, anicteric sclera CVS - S1, S2 w/o m/g/r Resp - CTA bilaterally GI - Soft, obese, nontender, nondistended, bowel sounds intact Neuro - Awake, alert, oriented to person/place/time, CN II - XII grossly intact, strength 5/5 in all four extremities, sensation intact, normal speech, normal muslce tone Ext - 2+ distal pulses, 1+ bilateral lower extremity edema Current Medications: Current Medications Sig/Cammy Start time Last Medication Dose Route Stop Time Status Admin Acetaminophen 650 MG Q6P PRN 10/01 2215 AC 10/02 PO 1825 Alprazolam 0.5 MG AT BEDTIME 02/01 2200 DC PO 02/08 2159 Alprazolam 0.5 MG AT BEDTIME 10/02 0045 AC 10/02 PO 10/09 0044 0046 Atorvastatin Calcium 5 MG 1700 10/02 1700 AC 10/02 PO 1818 Duloxetine HCl 60 MG DAILY 10/02 1000 AC 10/02 PO 0916 Enoxaparin Sodium 40 MG DAILY 10/02 1000 AC 10/02 SC 0924 Gabapentin 600 MG Q6 10/01 2359 AC 10/02 PO 1818 Gabapentin 600 MG Q6 10/01 0600 DC 10/01 PO 1432 Influenza Virus 0.5 ML 1000 10/02 1000 DC 10/02 Vaccine IM 10/02 1001 1241 Lamotrigine 200 MG DAILY 10/02 1000 DC PO Lamotrigine 200 MG DAILY 10/02 0100 AC 10/02 PO 0915 Lamotrigine 25 MG ONCE ONE 10/02 0045 CAN PO 10/02 0046 Levothyroxine Sodium 0.088 MG DAILY AC 10/02 0700 AC 10/02 PO 0558 Lisinopril 10 MG DAILY 10/02 1000 AC 10/02 PO 0916 Methylphenidate HCl 10 MG 0800,1700 10/02 0800 DC PO Methylphenidate HCl 10 MG 0800,1400 10/02 0800 AC 10/02 PO 1339 Metoprolol Succinate 50 MG DAILY 10/02 1000 AC 10/02 PO 0917 Morphine Sulfate 60 MG .STK-MED ONE 10/02 0554 DC PO 10/02 0555 Morphine Sulfate 0 .STK-MED ONE 10/01 2240 DC PO Morphine Sulfate 15 MG Q4-6 PRN PRN 10/01 2215 CAN PO Morphine Sulfate 60 MG Q8 10/01 2215 DC PO Morphine Sulfate 60 MG Q8 10/01 0600 AC 10/02 PO 1339 Morphine Sulfate 15 MG Q4-6 PRN PRN 10/01 0500 AC 10/02 PO 1340 Oxycodone HCl 10 MG Q4-6 PRN PRN 10/01 2300 AC 10/02 PO 1339 Oxycodone HCl 10 MG Q6 PRN 10/01 2215 CAN PO Oxycodone HCl 10 MG Q4-6 PRN PRN 10/01 0500 DC 10/01 PO 1152 Patient Medication 1 ED .STK-MED ONE 10/02 1402 DC Teaching ED 10/02 1403 Prednisone 5 MG 0800,1700 10/02 0800 AC 10/02 PO 1818 Last 24 Hrs of Lab/Zeke Results Last 24 Hrs of Labs/Mics: Laboratory Tests 10/02/16 0650: Anion Gap 11, Estimated GFR > 60, BUN/Creatinine Ratio 14.3, Vitamin B12 > 1000 H, Folate > 20.0 H, Cortisol AM Sample 0.7 L Assessment/Plan Assessment: Patient reported feeling tired/lethargic this morning but admits she felt better than while at home. Studies for B12, Folate were above threshold levels, TFTs were within normal limits. Cortisol level was found to be profoundly low at 0.7. Case management is to set up patient with home services that may potentially include nursing visits and physical therapy, pending insurance approval. She is to be continued on her previous regimen of prednisone, she will not require any stress dose steroids as she is hemodynamically stable. Profound Weakness/Lethargy/Adrenal Insufficieny: B12/Folate levels above threshhold. TFTs within normal limits. AM Cortisol found to be low at 0.7. Previously evaluated by an wood heel cementer at [facility] that "went out of business" that started patient on a chronic steroid regimen. Steroids were continued by her primary care provider Dr. Cuellar whom reportedly discontinued them several weeks ago "for no good reason". -Prednisone 5mg PO BID -Methylphenidate 10mg PO Daily -PT evaluation -F/U records from [facility] Hand Numbness/Weakness: Patient has been evaluated as an outpatient by her neurologist Dr. Puri for complaints of numbness in both her hands. It was reportedly recommended to obtain an MRI of her Brain/Neck/Spine for further evaluation of this, however due to patients implanted neurostimulator she cannot undergo the imaging study. She was reportedly supposed to have the neurostimulator explanted this past friday by her Pain Management physician Dr. Menendez, however could not attend the appointment due to fatigue. -Outpatient followup with Dr. Puri for MRI and evaluation -Outpatient explantation of neurostimulator by Dr. Menendez Transaminitis: Liver function tests founds to be elevated on admission. -Daily LFTs Chronic Low Back Pain: Patient of Dr. Menendez. 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 Weakness Pain Ratin Pain Location: Neck Pain Goal: Pain 7 or less Pain Plan: As noted in plan Tomorrow's Labs & Rationales: BEP - electrolyte monitoring LFTs - transaminitis MANNY GREENE MD 10/02/16 1821: Attending MD Review Statement Attending Statement Attending MD Statement: examined this patient, discuss w/resident/PA/REGISTERED RADIOGRAPHER, agreed w/resident/PA/REGISTERED RADIOGRAPHER, reviewed EMR data (avail) Attending Assessment/Plan: Will continue all home medications, neurology consult for spinal weakness, PT evaluation, potential rehab placement, DVT Ppx
[2016-10-02 14:02] VITALS: BP 136/86
--- NOTE | 2016-10-02 17:08 | Patient Discharge Instructions ---
Discharge Instructions General Discharge Information Special Instructions: Follow up with Dr. Menendez for removal of your Neurostimulator in order to obtain an MRI of head Head/Neck/Spine by Dr. Puri for further evaluation of your hand numbness. Follow up with your pain management doctor, your neurologist, your primary care provider, and your crossing supervisor at [facility] after discharge. If you do not wish to follow up with your previous crossing supervisor as previously stately, please malke an appointment with Dr. Acosta or Dr. Muhammad listed below, or ask your PCP Dr. Cuellar for her recommendation. Take prednisone as previously directed. Acute Coronary Syndrome Inclusion Criteria At DC or during hospital stay patient has or had the following: ACS DIAGNOSIS No Discharge Core Measures Meds if any: Prescribed or Continued at Discharge Meds if any: NOT Prescribed or Continued at Discharge Congestive Heart Failure Inclusion Criteria At DC or during hospital stay patient has or had the following: CHF DIAGNOSIS No Discharge Core Measures Meds if any: Prescribed or Continued at Discharge Meds if any: NOT Prescribed or Continued at Discharge Cerebrovascular accident Inclusion Criteria At DC or during hospital stay patient has or had the following: CVA/TIA Diagnosis No Discharge Core Measures Meds if any: Prescribed or Continued at Discharge Meds if any: NOT Prescribed or Continued at Discharge Venous thromboembolism Inclusion Criteria VTE Diagnosis No VTE Type NONE VTE Confirmed by (Test) NONE Discharge Core Measures - Per Current guidelines, there needs to be overlap - treatment for the first 5 days of Warfarin therapy. - If discharged on Warfarin prior to 5 days of - overlap therapy, the patient will need to be - assessed for post discharge needs including - *Post discharge parental anticoagulation - *Warfarin and/or parental anticoagulation education - *Follow up date to check INR post discharge At least 5 days overlap therapy as Inpatient No Meds if any: Prescribed or Continued at Discharge Note: Overlap Therapy is Warfarin and Anticoagulant Meds if any: NOT Prescribed or Continued at Discharge Meds if any: NOT Prescribed or Continued at Discharge
[2016-10-02 22:54] VITALS: BP 118/80
[2016-10-03 06:35] VITALS: BP 120/80
--- NOTE | 2016-10-03 07:18 | PN- Housestaff ---
SAMUEL VU,WADE 10/03/16 0718: Subjective Follow-up For: Weakness Adrenal Insufficiency Subjective: Patient seen and examined. She is seen sitting in her chair at bedside resting comfortably enjoying her breakfast. She appears to be in no acute distress. Last evening she expressed that should would like to leave agaisnt medical advice, but was convinced that it was no in her best interest to do so. She was agreeable to staying and reports that she and her are glad she did. She states that she slept well last night and feels well today, and denies any complaints. Additionally she denies any headache, fever, chills, chest pain, palpitations, shortness of breath, nausea, vomiting, diarrhea. No overnight events reported other than above. Review of Systems Constitutional: Reports: see HPI. Objective Last 24 Hrs of Vital Signs/I&O Vital Signs Date Time Temp Pulse Resp B/P Pulse O2 O2 Flow FiO2 Ox Delivery Rate 10/03 0816 120/80 10/03 0816 120/80 10/03 0635 97.5 80 20 120/80 94 Room Air 10/02 2254 97.4 93 20 118/80 94 Room Air 10/02 1402 97.7 95 20 136/86 97 / 0916 134/80 Intake & Output 10/03 1600 10/03 0800 10/03 0000 Intake Total 100 100 Output Total Balance 100 100 Intake, Oral 100 100 Physical Exam General Appearance: Alert, Oriented X3, Cooperative, No Acute Distress Other Physical Findings: General - well developed, well nourished obese middleaged woman in no acute distress HEENT - NCAT, PERRL, EOMI, anicteric sclera, MMM CVS - S1, S2 w/o m/g/r Resp - CTA bilaterally GI - Soft, nontender, nondistended, bowel sounds intact Neuro - Awake and alert, CN II - XII grossly intact Ext - 2+ distal pulses, no lower extremity edema Current Medications: Current Medications Sig/Cammy Start time Last Medication Dose Route Stop Time Status Admin Acetaminophen 650 MG .STK-MED ONE 10/02 1821 DC PO 10/02 182 Acetaminophen 650 MG Q6P PRN 10/01 2214 AC 10/02 PO 182 Alprazolam 0.5 MG AT BEDTIME 10/025 AC 10/02 PO 10/09 0044 2147 Atorvastatin Calcium 5 MG 1700 / 1700 AC 10/02 PO 1818 Duloxetine HCl 60 MG DAILY 10/02 1000 AC 10/03 PO 0817 Enoxaparin Sodium 40 MG DAILY 10/02 1000 AC 10/03 SC 0816 Gabapentin 600 MG Q6 10/01 2359 AC 10/03 PO 0613 Influenza Virus 0.5 ML 1000 10/02 1000 DC 10/02 Vaccine IM 10/02 1001 1241 Lamotrigine 200 MG DAILY 10/02 0100 AC 10/03 PO 0816 Levothyroxine Sodium 0.088 MG DAILY AC 10/02 0700 AC 10/03 PO 0613 Lisinopril 10 MG DAILY 10/02 1000 AC 10/03 PO 0816 Methylphenidate HCl 10 MG 0800,1400 10/02 0800 AC 10/03 PO 0817 Metoprolol Succinate 50 MG DAILY 10/02 1000 AC 10/03 PO 0816 Morphine Sulfate 60 MG .STK-MED ONE 10/02 2143 DC PO 10/02 2144 Morphine Sulfate 60 MG .STK-MED ONE 10/02 1334 DC PO 10/02 1335 Morphine Sulfate 60 MG Q8 10/01 0600 AC 10/03 PO 0612 Morphine Sulfate 15 MG Q4-6 PRN PRN 10/01 0500 AC 10/03 PO 0245 Oxycodone HCl 10 MG Q4-6 PRN PRN 10/01 2300 AC 10/03 PO 0818 Patient Medication 1 ED .STK-MED ONE 10/02 1402 DC Teaching ED 10/02 1403 Prednisone 5 MG 0800,1700 10/02 0800 AC 10/03 PO 0817 Last 24 Hrs of Lab/Zeke Results Last 24 Hrs of Labs/Mics: Laboratory Tests 10/03/16 0735: Sodium Pending, Potassium Pending, Chloride Pending, Carbon Dioxide Pending, Anion Gap Pending, BUN Pending, Creatinine Pending, BUN/Creatinine Ratio Pending , Total Bilirubin Pending, Direct Bilirubin Pending, AST Pending, ALT Pending, Alkaline Phosphatase Pending, Total Protein Pending, Albumin Pending Assessment/Plan Assessment: Patient continues to do well while maintained on her previous dose of oral prednisone. She reports feeling wlel and would like to go home. She is to be discharged to home with instruction to follow up with her neurologist, pain management physician, primary care provider, and to establish care with an cattle trader. Profound Weakness/Lethargy/Adrenal Insufficieny: B12/Folate levels above threshhold. TFTs within normal limits. AM Cortisol found to be low at 0.7. Previously evaluated by an cattle trader at [facility] that "went out of business" that started patient on a chronic steroid regimen. Steroids were continued by her primary care provider Dr. Cuellar whom reportedly discontinued them several weeks ago "for no good reason". -Prednisone 5mg PO BID -Methylphenidate 10mg PO Daily -PT evaluation -F/U records from [facility] Hand Numbness/Weakness: Patient has been evaluated as an outpatient by her neurologist Dr. Puri for complaints of numbness in both her hands. It was reportedly recommended to obtain an MRI of her Brain/Neck/Spine for further evaluation of this, however due to patients implanted neurostimulator she cannot undergo the imaging study. She was reportedly supposed to have the neurostimulator explanted this past friday by her Pain Management physician Dr. Menendez, however could not attend the appointment due to fatigue. -Outpatient followup with Dr. Puri for MRI and evaluation -Outpatient explantation of neurostimulator by Dr. Menendez Transaminitis: Liver function tests founds to be elevated on admission. -Daily LFTs Chronic Low Back Pain: Patient of Dr. Menendez. 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 Weakness Pain Ratin Pain Location: None Pain Goal: Remain pain free Pain Plan: As noted in plan Tomorrow's Labs & Rationales: None MANNY GREENE MD 10/03/16 1436: Attending MD Review Statement Attending Statement Attending MD Statement: examined this patient, discuss w/resident/PA/COUNTER POCKET SEWER, agreed w/resident/PA/COUNTER POCKET SEWER, reviewed EMR data (avail) Attending Assessment/Plan: Patient still complains of discomfort but weakness has improved. Seen by physical therapy and no need for STR. Patient may be discharged home with outpatient follow up with her pain specialist for neurostimulator removal followed by MRI and follow up with neurology. Will continue all home medications. Spoke with patient's who also agrees with plan and can help at home.
[2016-10-03 08:16] VITALS: BP 120/80
--- NOTE | 2016-10-03 09:13 | Discharge Summary ---
Visit Information Visit Dates Admission Date: 10/01/16 Hospital Course Course Attending Physician: MANNY GREENE MD Primary Care Physician: VANDANA JACKSON MD Allergies: Coded Allergies: Sulfa (Sulfonamide Antibiotics) (VOMITING 09/30/16) Discharge Instructions General Discharge Information Code Status: Full Code Medications at Discharge Discharge Medications: Continue taking these medications: Duloxetine HCl (Duloxetine HCl) 60 MG CAPSULE.DR 1 Capsule ORAL DAILY Qty = 90 Lamotrigine (Lamotrigine) 200 MG TABLET 1 Tablet ORAL DAILY Qty = 90 Lisdexamfetamine Dimesylate (Vyvanse) 30 MG CAPSULE 1 Capsule ORAL DAILY Qty = 90 Morphine Sulfate (Morphine Sulfate) 15 MG TABLET 1 Tablet ORAL EVERY 4-6 HOURS NEEDED as needed for PAIN Qty = 100 Morphine Sulfate (Morphine Sulfate ER) 60 MG TABLET.ER 1 Tablet ORAL THREE TIMES DAILY Qty = 90 Oxycodone HCl (Oxycodone HCl) 10 MG TABLET 1 Tablet ORAL 4 times daily as needed as needed for PAIM Qty = 180 Alprazolam (Alprazolam) 1 MG TABLET 0.5 Tablet ORAL Every night Qty = 90 Dextroamphetamine/Amphetamine (Dextroamp-Amphetamin 10 MG Tab) 10 MG TABLET 1 Tablet ORAL 1400 Qty = 90 Lisinopril (Lisinopril) 10 MG TABLET 1 Tablet ORAL DAILY Qty = 30 Ergocalciferol (Vitamin D2) (Vitamin D2) 50,000 UNIT CAPSULE 1 Capsule ORAL Once a Week Qty = 4 Levothyroxine Sodium (Levothyroxine Sodium) 88 MCG TABLET 1 Tablet ORAL DAILY BEFORE BREAKFAST Qty = 30 Lovastatin (Lovastatin) 10 MG TABLET 1 Tablet ORAL AT BEDTIME Qty = 30 Metoprolol Succinate (Metoprolol Succinate) 50 MG TAB.ER.24H 1 Tablet ORAL DAILY Qty = 30 Gabapentin (Gabapentin) 600 MG TABLET 1 Capsule ORAL 4 TIMES A DAY Qty = 360 Prednisone (Prednisone) 5 MG TABLET 1 Tablet ORAL TWICE DAILY
[2016-10-03] MEDS ORDERED: PREDNISONE5 M1 PO (13:23)
--- NOTE | 2016-10-03 14:31 | Discharge Summary ---
Visit Information Visit Dates Admission Date: 10/01/16 Discharge Date: 10/03/16 Hospital Course Course Attending Physician: MANNY GREENE MD Primary Care Physician: MANUEL VU,[place] Hospital Course: Patient is a 55-year-old lady with past medical history of complex partial seizures, fibromyalgia, questionable adrenal insufficiency, hypertension, depression, chronic back pain on several pain medications. she was brought in to the ED per her 's suggestion due to her persistent and progressive weakness in extremities, causing her not to be able to ambulate on her own. Her is sick and it has been hard for him to take care of her. For further evaluation of the numbness/weakness in her hands she was to have the neurostimulator explanted in order to obtain an MRI of her head/neck/spine. Patient was admitted to the general medicine floor for further evaluation and care. Profound Weakness/Lethargy/Adrenal Insufficieny: B12/Folate levels above threshhold. TFTs within normal limits. AM Cortisol found to be low at 0.7. Previously evaluated by an threading machine operator at [facility] that "went out of business" that started patient on a chronic steroid regimen. Steroids were continued by her primary care provider Dr. Jackson whom reportedly discontinued them several weeks ago "for no good reason". She was continued on her previous dose of predisone at 5mg PO BID and her home amphetamine regimen. PT evaluated the patient and determined that she would benefit from home physical therapy. She is to follow-up with her various specialists and to establish care with a new threading machine operator for further evaluation of her adrenal insufficiency. Hand Numbness/Weakness: Patient has been evaluated as an outpatient by her neurologist Dr. Puri for complaints of numbness in both her hands. It was reportedly recommended to obtain an MRI of her Brain/Neck/Spine for further evaluation of this, however due to patients implanted neurostimulator she cannot undergo the imaging study. She was reportedly supposed to have the neurostimulator explanted this past friday by her Pain Management physician Dr. Menendez, however could not attend the appointment due to fatigue. She is to follow-up with Dr. Menendez as an outpatient for explantation of her neurostimulator in order to obtain an MRI from Dr. Puri for further evaluation of her hand numbness/weakness. Chronic Low Back Pain: Patient of Dr. Menendez. Patient was continued on her home regimen of narcotic medications. She has a neurostimulator with occipital leads in place that is reportedly currently off with patient stating that she does not "use it". CT SUPPLY CHAIN BUYER checked and verified adequate allocation of controlled narcotic pain medications. History of Seizure Disorder: Patient was continued on her home dose of lamotrigine. She had no reported seizure activity at home or in the ER. She did not have any seizure activity during the hospitalization. Allergies: Coded Allergies: Sulfa (Sulfonamide Antibiotics) (VOMITING 09/30/16) Significant Procedures: SERVICE DATE: 09/30/16 EXAM TYPE: CAT - CT LUMB SPINE WO IV CONTRAST IMPRESSION: 1. There is a spinal stimulator device entering the canal at the T12-L1 level, and extending cranially in the posterior canal to the T6 level. 2. T11-T12: Asymmetric left-sided facet osteophyte projecting into and effacing the left subarticular recess, potentially impinging upon the traversing T12 nerve root. Moderate left foraminal stenosis. 3. T12-L1: Asymmetric right-sided disc osteophyte complex resulting in moderate right foraminal stenosis. 4. Elsewhere mild lumbar spondylosis. There is a mild levoconvex scoliosis centered at T12-L1. No compression deformities. Pertinent Lab Results: A.m. Cortisol 10/02/16: 0.7 Disposition Summary Disposition Principal Diagnosis: Profound weakness and fatigue possibly secondary to adrenal insufficiency Additional Diagnosis: Chronic back pain Discharge Disposition: home or self care Discharge Instructions General Discharge Information Code Status: Full Code Patient's Diet: Regular diet Patient's Activity: Return to full activity as tolerated Follow-Up Instructions/Appts: Follow up with Dr. Menendez for removal of your Neurostimulator in order to obtain an MRI of head Head/Neck/Spine by Dr. Puri for further evaluation of your hand numbness. Follow up with your pain management doctor, your neurologist, your primary care provider, and your threading machine operator at [facility] after discharge. If you do not wish to follow up with your previous threading machine operator as previously stately, please malke an appointment with Dr. Acosta or Dr. Muhammad listed below, or ask your PCP Dr. Jackson for her recommendation. Take prednisone as previously directed. Medications at Discharge Discharge Medications: Continue taking these medications: Duloxetine HCl (Duloxetine HCl) 60 MG CAPSULE.DR 1 Capsule ORAL DAILY Qty = 90 Comments: TAKEN 2/2 AT 10AM Lamotrigine (Lamotrigine) 200 MG TABLET 1 Tablet ORAL DAILY Qty = 90 Comments: TAKEN 2/2 AT 10AM Lisdexamfetamine Dimesylate (Vyvanse) 30 MG CAPSULE 1 Capsule ORAL DAILY Qty = 90 Comments: NOT GIVEN IN HOSPITAL Morphine Sulfate (Morphine Sulfate) 15 MG TABLET 1 Tablet ORAL EVERY 4-6 HOURS NEEDED as needed for PAIN Qty = 100 Comments: TAKEN 2/2 AT 1200PM Morphine Sulfate (Morphine Sulfate ER) 60 MG TABLET.ER 1 Tablet ORAL THREE TIMES DAILY Qty = 90 Comments: TAKEN 2/2 AT 2PM Oxycodone HCl (Oxycodone HCl) 10 MG TABLET 1 Tablet ORAL 4 times daily as needed as needed for PAIM Qty = 180 Comments: TAKEN 2/2 9AM Alprazolam (Alprazolam) 1 MG TABLET 0.5 Tablet ORAL Every night Qty = 90 Comments: TAKEN 2/ AT 10PM Dextroamphetamine/Amphetamine (Dextroamp-Amphetamin 10 MG Tab) 10 MG TABLET 1 Tablet ORAL 1400 Qty = 90 Comments: RITALIN GIVEN INSTEAD 2/2 AT 10 & 2P Lisinopril (Lisinopril) 10 MG TABLET 1 Tablet ORAL DAILY Qty = 30 Comments: TAKNE 2/2 AT 10AM Ergocalciferol (Vitamin D2) (Vitamin D2) 50,000 UNIT CAPSULE 1 Capsule ORAL Once a Week Qty = 4 Comments: NOT GIVEN IN HOSPITAL Levothyroxine Sodium (Levothyroxine Sodium) 88 MCG TABLET 1 Tablet ORAL DAILY BEFORE BREAKFAST Qty = 30 Comments: LAST TAKEN 2/2 AT 0700AM Lovastatin (Lovastatin) 10 MG TABLET 1 Tablet ORAL AT BEDTIME Qty = 30 Comments: TAKEN 2/1 AT 5PM Metoprolol Succinate (Metoprolol Succinate) 50 MG TAB.ER.24H 1 Tablet ORAL DAILY Qty = 30 Comments: TAKEN 2/2 AT 10AM Gabapentin (Gabapentin) 600 MG TABLET 1 Capsule ORAL 4 TIMES A DAY Qty = 360 Comments: LAST TAKEN 2/2 AT 1200 Prednisone (Prednisone) 5 MG TABLET 1 Tablet ORAL TWICE DAILY Qty = 60 Comments: TAKEN 2/2 AT 8AM This prescription has been renewed Copies To: VANDANA JACKSON MD; CAROL VU,C[place]
== END 2016-10-03 14:01 | DRG 644 ==
LOC: ENRESERVDT → ENRESERVTM → ERH 07:22 → ENPENDDIS 10-01 19:43 → 2NA 10-01 19:43 → ERHI 10-01 19:43 → 2NA 10-01 22:47
PROVIDERS: Emergency Medicine; ADMIT Student in an Organized Health Care Education/Training Program
DX: E27.40 Unspecified adrenocortical insufficiency (principal); G40.209 Localization-related (focal) (partial) symptomatic epilepsy and epileptic syndromes with complex partial seizures, not intractable, without status epilepticus; I10 Essential (primary) hypertension; M79.7 Fibromyalgia; R53.1 Weakness; E05.90 Thyrotoxicosis, unspecified without thyrotoxic crisis or storm; E78.5 Hyperlipidemia, unspecified; F41.8 Other specified anxiety disorders; M54.9 Dorsalgia, unspecified
CPT/HCPCS: 2NASP; 80307; 81001; 81025; 82436; 96374; 97110-GP; 97116-GO; 97162-GP; 97530-GO; 97530-GP; J1650; J2930; J7512; Q2036